=== PATIENT | female | born 1975 ===

== ENCOUNTER 2018-04-18 17:34 | Emergency (ER) | payer OTHER ==
[2018-04-18] MEDS ORDERED: DiphenhydrAMINE 50 mg/ml Inj IVP STA (18:14)
--- NOTE | 2018-04-18 18:17 | ED PDOC ---
HPI: Allergic Reaction Time Seen by Provider: 04/18/18 18:07 Chief Complaint (Nursing): Abnormal Skin Integrity Chief Complaint (Provider): Abnormal Skin Integrity History Per: Patient History/Exam Limitations: no limitations Onset/Duration Of Symptoms: Days (3x) Current Symptoms Are (Timing): Still Present Possible Cause: Unknown Associated Symptoms: Skin Rash (all over body) Home/EMS Treatment: Benadryl Severity: Moderate Additional Complaint(s): 42 year old female with no pertinent past medical history presents to the ED for an evaluation of a rash that started 3x days ago. Patient reports that the rash has worsened and spread to all over her body, and is itchy. Patient denies trying any new foods, lotions, detergents, and medications. Patient reports she took benadryl yesterday with no relief. PMD: None provided Past Medical History Reviewed: Historical Data, Nursing Documentation, Vital Signs Vital Signs: Last Vital Signs Temp 98.3 F 04/18/18 17:55 Pulse 94 H 04/18/18 17:55 Resp 16 04/18/18 17:55 BP 115/76 04/18/18 17:55 Pulse Ox 100 04/18/18 17:55 - Medical History PMH: Diabetes Denies: Chronic Kidney Disease - Surgical History Surgical History: Cholecystectomy, - Family History Family History: States: No Known Family Hx - Social History Alcohol: None Drugs: Denies - Home Medications Home Medications: Ambulatory Orders Medication Instructions Recorded Ibuprofen [Motrin] 600 mg PO Q8 PRN #6 tab 07/10/14 oxyCODONE/Acetaminophen [Percocet 1 ea PO BID PRN #8 tab 07/10/14 5/325 mg Tab] Amoxicillin/Clavulanate [Augmentin 1 tab PO BID #14 tab 10/10/15 875 MG-125 MG] traMADol [Ultram] 50 mg PO Q6 PRN #16 tab 10/10/15 DiphenhydrAMINE [Benadryl] 50 mg PO Q4 PRN #30 cap 04/18/18 Methylprednisolone [Medrol Dose 4 mg PO DAILY #21 mg 04/18/18 Pack (21 tabs)] - Allergies Allergies/Adverse Reactions: Allergies Allergy/AdvReac Type Severity Reaction Status Date / Time No Known Allergies Allergy Verified 04/18/18 17:55 Review of Systems ROS Statement: Except As Marked, All Systems Reviewed And Found Negative Skin: Positive for: Rash (all over body, itching) Physical Exam - Reviewed Nursing Documentation Reviewed: Yes Vital Signs Reviewed: Yes - Physical Exam Appears: Positive for: Well, Non-toxic, No Acute Distress Head Exam: Positive for: ATRAUMATIC, NORMOCEPHALIC Skin: Positive for: Warm, Dry, Rash (diffuse erythematous maculopapular eruption to torso, extremities) Neurologic/Psych: Positive for: Alert, Oriented (3x) - ECG O2 Sat by Pulse Oximetry: 100 (RA) Pulse Ox Interpretation: Normal Disposition - Clinical Impression Clinical Impression: Urticaria - Patient ED Disposition Is Patient to be Admitted: No - Disposition Disposition: Routine/Home Disposition Time: 20:32 Condition: STABLE Prescriptions: DiphenhydrAMINE [Benadryl] 50 mg PO Q4 PRN #30 cap PRN Reason: Rash Methylprednisolone [Medrol Dose Pack (21 tabs)] 4 mg PO DAILY #21 mg Instructions: Sergio (DC) Forms: [employer] (Congolese) Print Language: LATVIAN Medical Decision Making Medical Decision Makin:07 Initial impression: 42 year old female with a rash Initial plan: * benadryl 50 mg IVP * pepcid 20 mg IVP * solu-medrol 125 mg IVP once * reevaluation Scribe Attestation: Documented by Rosalia Encarnacion, acting as a scribe for Kristy Chase Provider Scribe Attestation: All medical record entries made by the Scribe were at my direction and personally dictated by me. I have reviewed the chart and agree that the record accurately reflects my personal performance of the history, physical exam, medical decision making, and the department course for this patient. I have also personally directed, reviewed, and agree with the discharge instructions and dis position.
[2018-04-18] MEDS ORDERED: DiphenhydrAMINE 50 mg/ml Inj ONE (18:41)
[2018-04-18 21:10] VITALS: BP 118/81; PULSE 72; RESP 15; TEMP 98.1; O2SAT 99
== END 2018-04-18 21:10 | disposition home or self-care (01) ==
LOC: H.ER 17:34
DX: L50.0 Allergic urticaria (principal); E11.9 Type 2 diabetes mellitus without complications
CPT/HCPCS: 81025; 96374; 96375; 99283; J1200; J2930